=== PATIENT | male | born 1960 | race Caucasian/White ===

== ENCOUNTER 2023-08-04 19:35 | Emergency (ER) | payer OTHER ==
[2023-08-04 19:39] VITALS: BP 187/111; PULSE 118; RESP 20; TEMP 98; BMI 16.2
[2023-08-04] MEDS ORDERED: LIDOCAINE HCL 2% JELLY 6 ML TP ONE (19:44)
[2023-08-04 20:20] LABS: URINE APPEARANCE CLEAR; URINE BILIRUBIN NEGATIVE (NEGATIVE); URINE COLOR YELLOW; URINE GLUCOSE (UA) NEGATIVE (NEGATIVE); URINE KETONE NEGATIVE (NEGATIVE); URINE LEUK ESTERASE NEGATIVE (NEGATIVE); URINE NITRITE NEGATIVE (NEGATIVE); URINE PROTEIN NEGATIVE (NEGATIVE); URINE UROBILINOGEN 0.2 mg/dL (0.2-1.0)
[2023-08-04] MEDS: LIDOCAINE HCL 2% JELLY 6 ML TP ONE (20:36)
== END 2023-08-04 20:47 | disposition left against medical advice (07) ==
LOC: JER 19:35
PROC: 0T2BX0Z Change Drainage Device in Bladder, External Approach (ICD-10-PCS; principal; 2023-08-04)
DX: R33.9 Retention of urine, unspecified (principal)
CPT/HCPCS: 81003; 87086; 99283-25